=== PATIENT | male | born 1970 | race Caucasian/White ===

== ENCOUNTER → 2019-08-21 09:57 | Outpatient (CLI) | payer BC, SELFPAY ==
--- NOTE | 2019-08-21 10:01 | XR_ITS ---
PROCEDURE: XR KNEE RT 3V CLINICAL INDICATION: pain COMPARISON: [id number] KNEE-3 VIEWS-RT from 06/01/2017 FINDINGS: No fracture or dislocation. No lytic or blastic change. There is normal mineralization. There are mild osteoarthritic changes of the medial compartment and patellofemoral joint with small suprapatellar effusion. No fracture or dislocation. Other findings:None. IMPRESSION: Mild osteoarthritis with small knee joint effusion Dictated by: Matthieu Catherine MD 08/21/2019 10:43 Electronically signed by Matthieu Catherine MD in [place] 08/21/2019 10:43
[2019-08-21 11:28] LABS: Basophils # 0.1 K/mm3 (0-0.2); Eosinophils # 0.3 K/mm3 (0.0-0.4); Eosinophils % 4.6 % (0.1-12.0); Hematocrit 42.7 % (42.0-52.0); Hemoglobin 14.1 g/dL (14.1-18.0); Lymphocytes # 1.9 K/mm3 (0.7-4.5); Mean Corpuscular Hemoglobin 26.5 pg (27.0-31.2); Mean Corpuscular Volume 80.3 fl (80-94); Mean Platelet Volume 7.6 fl (7.4-10.4); Monocytes # 0.3 K/mm3 (0.1-1.0); Monocytes % 5.7 % (1.7-9.3); Neutrophils # 3.2 K/mm3 (1.8-7.8); Neutrophils % 55.7 % (37.0-80.0); Platelet Count 219 K/mm3 (142-424); Red Blood Count 5.32 M/mm3 (4.60-6.20); Red Cell Distribution Width 13.6 % (11.5-17.5); White Blood Count 5.7 K/mm3 (4.8-10.8)
[2019-08-21 12:04] LABS: Erythrocyte Sedimentation Rate 5 mm/hr (0-15)
[2019-08-21 12:18] LABS: Alanine Aminotransferase 16 U/L (12-78); Albumin Level 3.8 gm/dL (3.4-5.0); Albumin/Globulin Ratio 1.1 (1.1-1.8); Alkaline Phosphatase 77 U/L (46-116); Anion Gap 12.3 mEq/L (5-15); Aspartate Amino Transferase 8 U/L (15-37); Bilirubin,Total 0.4 mg/dL (0.2-1.0); Blood Urea Nitrogen 15 mg/dL (7-18); Calcium 8.5 mg/dL (8.5-10.1); Carbon Dioxide 31 mmol/L (21.0-32.0); Chloride 103 mmol/L (98-107); Chol/HDL Ratio 2.8 (1-3.5); Cholesterol 127 mg/dL (140-200); Estimated Glomerular Filt Rate 79 ml/min (>60); Free T4 (Free Thyroxine) 0.74 ng/dl (0.76-1.46); GFR (African American) 96 ML/MIN (>60); Globulin 3.5 gm/dl (1.3-3.2); Glucose 83 mg/dL (74-106); HDL Cholesterol 45 mg/dL (27-67); LDL Cholesterol 18 mg/dL (0-130); Potassium 4.3 mmoL/L (3.5-5.1); Sodium 142 mmol/L (136-145); Thyroid Stimulating Hormone 0.98 uIU/ml (0.358-3.740); Total Protein,Serum 7.3 gm/dL (6.4-8.2); Triglycerides 320 mg/dL (30-200); VLDL Cholesterol 64 mg/dL (0-40)
[2019-08-21 12:31] LABS: C-Reactive Protein < 0.2 mg/dL (0.0-0.9)
[2019-08-22 16:46] LABS: RA Latex Turbid. <10.0 IU/mL (0.0-13.9); Vitamin D 25 Hydroxy 22.1 ng/mL (30.0-100.0)
== END ==
PROVIDERS: PCP Nurse Practitioner Family; Visit Provider Nurse Practitioner Family
DX: M25.561 Pain in right knee (principal); G89.29 Other chronic pain; R53.83 Other fatigue; E55.9 Vitamin D deficiency, unspecified
CPT/HCPCS: 36415; 73562; 80053; 80061; 82652; 84439; 84443; 85025; 85651; 86140; 86431